=== PATIENT | male | born 1950 | race Caucasian/White ===

== ENCOUNTER 2017-02-13 09:35 | Emergency (ER) | payer MEDICARE, BC ==
[2017-02-13 10:17] VITALS: BP 157/89
[2017-02-13] MEDS ORDERED: Lidocaine 1% 10 ML MDV INJECT ONE (10:21)
[2017-02-13] MEDS ORDERED: Cephalexin 250 MG Cap ONE (11:17)
[2017-02-13] MEDS ORDERED: Diphtheria,Pertussis(Acell),Tetanus Vaccine 0.5 ML SDV IM ONE (11:21)
[2017-02-13] MEDS ORDERED: Cephalexin 250 MG Cap PO ONE (11:22)
--- NOTE | 2017-02-13 12:11 | EDM.PDOC ---
ED HPI Trauma - General Chief Complaint: Upper Extremity Injury/Pain Stated Complaint: FISHHOOK IN LEFT HAND-THUMB AREA Time Seen by Provider: 02/13/17 09:45 Source: Reports: Patient, Family () History Limitations: Reports: No limitations - History of Present Illness INITIAL COMMENTS - FREE TEXT/NARRATIVE: Patient was fishing earlier this morning and had a large barbed fishhook embedded into his left thumb he comes in to have this removed today. Other than the discomfort from the needle he has no other complaints. He denies numbness in his finger. He is able to bend the finger without difficulty. Symptom Onset Date: 02/13/17 Occurred When: this morning Occurred Where: other Severity: mild Pain/Injury Location: Reports: upper extremity, left (left thumb palmar surface) Associated Symptoms: Reports: no other symptoms Allergies/ADRs: Allergies No Known Drug Allergies Allergy (Verified 02/13/17 10:18) Cannot Remember Home Medications: Ambulatory Orders Aspirin [Halfprin] 81 mg PO BRK 10/07/15 [Confirmed 02/13/17] Metoprolol Succinate 25 mg PO DAILY 10/07/15 [Confirmed 02/13/17] Omeprazole Magnesium [Prilosec Otc] 20 mg PO DAILY 10/07/15 [Confirmed 02/13/17] Valsartan/Hydrochlorothiazide [Valsartan-Hctz 160-12.5 mg Tab] 1 each PO DAILY 10/07/15 [Confirmed 02/13/17] atorvaSTATin Calcium [Atorvastatin Calcium] 40 mg PO DAILY 10/07/15 [Confirmed 02/13/17] Finasteride [Finasteride] 5 mg PO DAILY 02/13/17 [Confirmed 02/13/17] Past Medical History HEENT History: Reports: Hard of hearing, Impaired vision Cardiovascular History: Reports: High cholesterol, Hypertension, SOB on exertion Respiratory History: Reports: SOB Gastrointestinal History: Reports: Cholelithiasis, GERD, GI bleed Genitourinary History: Reports: Pyelonephritis, Renal calculus, UTI, recurrent Musculoskeletal History: Reports: Arthritis Neurological History: Reports: Concussion, Headaches, chronic, Migraines, Vertigo Endocrine/Metabolic History: Reports: Other (see below) Other Endocrine/Metabolic History: Pt states boarder ling diabetic. Dermatologic History: Reports: Eczema, Other (see below) Other Dermatologic History: Hx of cellulitis to ear - Infectious Disease History Infectious Disease History: Reports: C-difficile, Measles - Past Surgical History HEENT Surgical History: Reports: None Cardiovascular Surgical History: Reports: None GI Surgical History: Reports: Appendectomy, Cholecystectomy, Colonoscopy, EGD Male Surgical History: Reports: Renal Calculus Endocrine Surgical History: Reports: None Neurological Surgical History: Reports: None Musculoskeletal Surgical History: Reports: Arthroscopic knee Dermatological Surgical History: Reports: None Social & Family History - Family History Family Medical History: Noncontributory - Tobacco Use Smoking Status *Q: Never Smoker Second Hand Smoke Exposure: Yes - Caffeine Use Caffeine Use: Reports: Soda - Recreational Drug Use Recreational Drug Use: No Review of Systems - Review of Systems Review Of Systems: ROS reveals no pertinent complaints other than HPI. Trauma Exam - Physical Exam Exam: See Below Exam Limited By: No limitations General Appearance: Reports: alert, WD/WN, obese Head: Reports: atraumatic, normocephalic Throat/Mouth: Reports: Normal voice, No airway compromise Respiratory Exam: Reports: no respiratory distress Extremities: Reports: other (there is a large barbed hook embedded into the left thumb palmar surface proximal to the IP joint. Patient has intact sensation to light touch distally. No numbness or tingling complaints. Patient is able to flex the finger without limitation or difficulty.) Neurologic: Reports: alert, normal mood/affect, oriented x 3 Skin: Reports: Normal color, Warm/dry ED TRAUMA EXTREMITY PROCEDURES - Foreign Body Removal Consent obtained: patient Anesthesia Type: Local (digital block left thumb) Findings:: Left fishhook barbed, was removed after a digital block of 5 cc of 1% Xylocaine to anesthetize the thumb. The hook was removed by using a needle-nose roll off driver and bringing it through the skin. A barbed hook was then cut and her remaining hook was removed to its initial entrance. Thumb was then placed in a Betadine saline solution and cleaned. Started on Keflex. Entire procedure well he had no complaints Complications:: No Course - Vital Signs Last Recorded V/S: Last Vital Signs Temp 98.6 F 02/13/17 10:14 Pulse 66 02/13/17 10:14 Resp 18 02/13/17 10:14 BP 157/89 H 02/13/17 10:14 Pulse Ox 94 L 02/13/17 10:14 - Orders/Labs/Meds Orders: Active Orders 24 hr Category Date Time Status Vaccines to be Administered [RC] PER UNIT ROUTINE Care 02/13/17 11:22 Active Meds: Medications Discontinued Medications Generic Name Dose Route Start Last Admin Trade Name Thony PRN Reason Stop Dose Admin Cephalexin Confirm 02/13/17 11:17 Keflex Administered 02/13/17 11:18 Dose 2,000 mg .ROUTE .STK-MED ONE Cephalexin 2,000 mg 02/13/17 11:22 02/13/17 11:51 Keflex PO 02/13/17 11:23 2,000 mg ONETIME ONE Administration Diphtheria/Tetanus/Acell Pertussis 0.5 ml 02/13/17 11:21 02/13/17 11:51 Adacel IM 02/13/17 11:22 0.5 ml .ONCE ONE Administration Lidocaine HCl 10 ml 02/13/17 10:21 02/13/17 10:52 Xylocaine 1% INJECT 02/13/17 10:22 Not Given ONETIME ONE Lidocaine HCl 5 ml 02/13/17 10:50 02/13/17 10:51 Xylocaine-Mpf 1% INJECT 02/13/17 10:51 5 ml ONETIME ONE Administration Departure - Departure Time of Disposition: 12:11 Disposition: Home, Self-Care 01 Condition: good Clinical Impression: [place] injury to finger Qualifiers: Encounter type: initial encounter Laterality: left Qualified Code(s): S69.92XA - Unspecified injury of left wrist, hand and finger(s), initial encounter Instructions: Puncture Wound, [id number], Infectious Finger Tenosynovitis Referrals: Dixie Mathur MD [Primary Care Provider] - Forms: ED Department Discharge Additional Instructions: 1. Keflex 500 mg 4 times a day for 5 days 2. For signs of infection to the left thumb, redness, swelling, increasing pain , increased pain with finger flexion, redness and swelling extending up the thumb into the hand and forearm. 3. Followup with your primary care if any of these symptoms should occur. 4. Keep the area clean and dry. - My Orders Last 24 Hours: My Active Orders 02/13/17 11:22 Vaccines to be Administered [RC] PER UNIT ROUTINE - Assessment/Plan Last 24 Hours: My Active Orders 02/13/17 11:22 Vaccines to be Administered [RC] PER UNIT ROUTINE Assessment:: Embedded fishhook left thumb Plan: 1. Keflex 500 mg 4 times a day for 5 days. 2. Patient will watch for signs of infection of the left thumb which includes redness swelling increased pain with flexion and redness swelling moving up the the thumb and into the hand and forearm. 3. Followup with his primary care if there is any concerns of infection.
== END 2017-02-13 11:50 | disposition home or self-care (01) ==
LOC: KA.ED 09:35
DX: S60.352A Superficial foreign body of left thumb, initial encounter (principal); E78.00 Pure hypercholesterolemia, unspecified; I10 Essential (primary) hypertension; K21.9 Gastro-esophageal reflux disease without esophagitis; Z90.49 Acquired absence of other specified parts of digestive tract; Z79.899 Other long term (current) drug therapy; Z23 Encounter for immunization
CPT/HCPCS: 64450; 90471; 90715; 99283; A9270

== ENCOUNTER 2022-09-28 11:35 | Day surgery (SDC) | payer MEDICARE, BC ==
[2022-09-28] MEDS ORDERED: Sodium Chloride 0.9% 10 ML Syringe FLUSH PRN (12:00)
[2022-09-28] MEDS ORDERED: Sodium Chloride 0.9% 1,000 ML IV SCH (12:00)
[2022-09-28] MEDS ORDERED: Propofol 200 MG/20 ML SDV ONE (13:05)
[2022-09-28] MEDS ORDERED: Midazolam 1 MG/ML 2 ML SDV ONE (13:05)
[2022-09-28 17:46] VITALS: BP 117/65; PULSE 68
== END 2022-09-28 15:03 | disposition home or self-care (01) ==
LOC: KA.SDS 11:35
PROVIDERS: ATTEND Surgery
DX: Z12.11 Encounter for screening for malignant neoplasm of colon (principal); D12.5 Benign neoplasm of sigmoid colon; I10 Essential (primary) hypertension; E11.9 Type 2 diabetes mellitus without complications; D64.9 Anemia, unspecified; F32.A Depression, unspecified; K21.9 Gastro-esophageal reflux disease without esophagitis; E78.5 Hyperlipidemia, unspecified; E55.9 Vitamin D deficiency, unspecified; R73.01 Impaired fasting glucose; E53.8 Deficiency of other specified B group vitamins; Z79.899 Other long term (current) drug therapy; Z79.82 Long term (current) use of aspirin; Z79.84 Long term (current) use of oral hypoglycemic drugs; Z88.5 Allergy status to narcotic agent; Z98.890 Other specified postprocedural states; Z90.49 Acquired absence of other specified parts of digestive tract; Z68.41 Body mass index [BMI] 40.0-44.9, adult
CPT/HCPCS: 00812; 82947; J2250; J2704; J7030

== ENCOUNTER 2024-08-06 10:45 | Emergency (ER) | payer MEDICARE ==
[2024-08-06 11:15] LABS: BASOPHILS ABSOLUTE AUTO 0.03 10^3/uL (0.00-0.10); BASOPHILS PERCENT AUTO 0.3 % (0.0-1.0); EOSINOPHILS ABSOLUTE AUTO 0.17 10^3/uL (0.10-0.30); EOSINOPHILS PERCENT AUTO 1.5 % (1.0-3.0); HEMATOCRIT 37.2 % (40.0-52.0); HEMOGLOBIN 11.9 g/dL (13.0-17.0); IMMATURE GRAN ABSOLUTE AUTO 0.02 10^3/uL (0.00-0.50); IMMATURE GRAN PERCENT AUTO 0.2 % (0.0-5.0); LYMPHOCYTES ABSOLUTE AUTO 1.19 10^3/uL (1.00-4.00); LYMPHOCYTES PERCENT AUTO 10.7 % (20.0-40.0); MEAN CORPUSCULAR HEMOGLOBIN 29.1 pg (27.0-31.0); MEAN PLATELET VOLUME 10.5 fL (7.4-10.4); MONOCYTES ABSOLUTE AUTO 1.26 10^3/uL (0.10-0.80); MONOCYTES PERCENT AUTO 11.3 % (2.0-8.0); NEUTROPHILS ABSOLUTE AUTO 8.44 10^3/uL (2.50-7.00); PLATELET COUNT,PLT 202 10^3/uL (150-400); RED BLOOD CELL COUNT 4.09 10^6/uL (4.50-6.00); RED CELL DISTRIBUTION WIDTH 14.6 % (11.5-14.5); WHITE BLOOD CELL COUNT,WBC 11.11 10^3/uL (5.00-10.00)
[2024-08-06 11:35] LABS: ALANINE AMINOTRANSFERASE,ALT 33 U/L (14-63); ALBUMIN 3.45 g/dL (3.40-5.00); ALKALINE PHOSPHATASE 108 U/L (46-116); ANION GAP 8.4 mmol/L (5-15); ASPARTATE AMNIOTRANSFERASE,AST 42 U/L (15-37); BILIRUBIN TOTAL 1.5 mg/dL (0.2-1.0); BLOOD UREA NITROGEN,BUN 15 mg/dL (7-18); CALCIUM 8.2 mg/dL (8.7-10.3); CARBON DIOXIDE,CO2 29.2 mmol/L (21.0-32.0); CHLORIDE,CL 99 mmol/L (98-107); CREATININE 0.78 mg/dL (0.51-1.17); GLUCOSE RANDOM 106 mg/dL (70-140); POTASSIUM,K 3.6 mmol/L (3.5-5.1); PROTEIN TOTAL,TP 6.6 g/dL (6.4-8.2); SODIUM,NA 133 mmol/L (136-145)
[2024-08-06 11:36] LABS: ESTIMATED GFR 94 mL/min (>=60)
[2024-08-06 11:41] LABS: B-TYPE NATRIURETIC PEPTIDE,BNP 145 pg/mL (0-100)
[2024-08-06] MEDS: Sodium Chloride 0.9% 100 ML IV SCH (12:33)
[2024-08-06] MEDS: Iopamidol 755 Mg/ML 100 ML Bottle IV ONE (12:34)
[2024-08-06] MEDS: Metoprolol Succinate 25 MG Tab.ER PO ONE (13:31)
[2024-08-06 13:32] VITALS: BP 135/70; PULSE 96
[2024-08-06 17:03] LABS: APPEARANCE,URINE CLEAR (CLEAR); BILIRUBIN,URINE NEGATIVE (NEGATIVE); COLOR,URINE DARK YELLOW (YELLOW); GLUCOSE,URINE NEGATIVE (NEGATIVE); KETONES,URINE NEGATIVE (NEGATIVE); LEUKOCYTE ESTERASE,URINE TRACE (NEGATIVE); NITRITE,URINE POSITIVE (NEGATIVE); OCCULT BLOOD,URINE NEGATIVE (NEGATIVE); PH,URINE 5.5 (5.0-9.0); PROTEIN,URINE NEGATIVE (NEGATIVE)
[2024-08-06 17:11] LABS: BACTERIA,URINE FEW /HPF (NONE TO FEW); EPITHELIAL CELLS,URINE RARE /LPF; RBC,URINE 0-5 /HPF (0-5); WBC,URINE 0-5 /HPF (0-5)
== END 2024-08-06 18:09 ==
LOC: KA.ED 10:45
DX: J90 Pleural effusion, not elsewhere classified (principal); I31.39 Other pericardial effusion (noninflammatory); I10 Essential (primary) hypertension; E78.00 Pure hypercholesterolemia, unspecified; Z90.49 Acquired absence of other specified parts of digestive tract; Z79.899 Other long term (current) drug therapy; Z91.048 Other nonmedicinal substance allergy status; Z88.5 Allergy status to narcotic agent
CPT/HCPCS: 71045; 71275; 80053; 81001; 83880; 84484; 85025; 85379; 87086; 87088; 93005; 99285; A9270-GY; J3490; Q9967

== ENCOUNTER 2024-08-10 19:15 | Observation (INO) | payer MEDICARE ==
[2024-08-10] MEDS: Sodium Chloride 0.9% 1,000 ML ONE (19:38)
[2024-08-10 19:42] LABS: BASOPHILS ABSOLUTE AUTO 0.04 10^3/uL (0.00-0.10); BASOPHILS PERCENT AUTO 0.4 % (0.0-1.0); EOSINOPHILS ABSOLUTE AUTO 0.24 10^3/uL (0.10-0.30); EOSINOPHILS PERCENT AUTO 2.2 % (1.0-3.0); HEMATOCRIT 39.5 % (40.0-52.0); HEMOGLOBIN 12.9 g/dL (13.0-17.0); IMMATURE GRAN ABSOLUTE AUTO 0.04 10^3/uL (0.00-0.50); IMMATURE GRAN PERCENT AUTO 0.4 % (0.0-5.0); LYMPHOCYTES ABSOLUTE AUTO 1.62 10^3/uL (1.00-4.00); LYMPHOCYTES PERCENT AUTO 14.5 % (20.0-40.0); MEAN CORPUSCULAR HEMOGLOBIN 29.5 pg (27.0-31.0); MEAN CORPUSCULAR HGB CONC 32.7 g/dL (32.0-36.0); MEAN CORPUSCULAR VOLUME 90.4 fL (82.0-92.0); MEAN PLATELET VOLUME 10.5 fL (7.4-10.4); MONOCYTES ABSOLUTE AUTO 0.96 10^3/uL (0.10-0.80); MONOCYTES PERCENT AUTO 8.6 % (2.0-8.0); NEUTROPHILS ABSOLUTE AUTO 8.26 10^3/uL (2.50-7.00); NEUTROPHILS PERCENT AUTO 73.9 % (50.0-70.0); PLATELET COUNT,PLT 254 10^3/uL (150-400); RED BLOOD CELL COUNT 4.37 10^6/uL (4.50-6.00); RED CELL DISTRIBUTION WIDTH 14.7 % (11.5-14.5); WHITE BLOOD CELL COUNT,WBC 11.16 10^3/uL (5.00-10.00)
[2024-08-10 19:54] LABS: ALBUMIN 3.35 g/dL (3.40-5.00); ANION GAP 14.1 mmol/L (5-15); BILIRUBIN TOTAL 1.2 mg/dL (0.2-1.0); CARBON DIOXIDE,CO2 27.7 mmol/L (21.0-32.0); CREATININE 1.38 mg/dL (0.51-1.17); EST CRCL DRUG DOSING (CG) 53.88 mL/min; POTASSIUM,K 3.8 mmol/L (3.5-5.1); PROTEIN TOTAL,TP 6.5 g/dL (6.4-8.2)
[2024-08-11] MEDS ORDERED: Acetaminophen 325 MG Tab PO PRN (01:14)
[2024-08-11] MEDS ORDERED: Albuterol/Ipratropium 3.0-0.5 MG/3 ML Neb Soln INH PRN (01:16)
[2024-08-11] MEDS ORDERED: Albuterol 8 GM Inhaler INH PRN (01:16)
[2024-08-11 05:52] VITALS: PULSE 89
[2024-08-11 07:36] LABS: BASOPHILS ABSOLUTE AUTO 0.04 10^3/uL (0.00-0.10); BASOPHILS PERCENT AUTO 0.4 % (0.0-1.0); EOSINOPHILS ABSOLUTE AUTO 0.28 10^3/uL (0.10-0.30); EOSINOPHILS PERCENT AUTO 2.5 % (1.0-3.0); HEMATOCRIT 37.9 % (40.0-52.0); HEMOGLOBIN 12.1 g/dL (13.0-17.0); IMMATURE GRAN ABSOLUTE AUTO 0.02 10^3/uL (0.00-0.50); IMMATURE GRAN PERCENT AUTO 0.2 % (0.0-5.0); LYMPHOCYTES ABSOLUTE AUTO 1.64 10^3/uL (1.00-4.00); LYMPHOCYTES PERCENT AUTO 14.5 % (20.0-40.0); MEAN CORPUSCULAR HEMOGLOBIN 28.9 pg (27.0-31.0); MEAN CORPUSCULAR HGB CONC 31.9 g/dL (32.0-36.0); MEAN CORPUSCULAR VOLUME 90.5 fL (82.0-92.0); MEAN PLATELET VOLUME 10.1 fL (7.4-10.4); MONOCYTES ABSOLUTE AUTO 1.21 10^3/uL (0.10-0.80); MONOCYTES PERCENT AUTO 10.7 % (2.0-8.0); NEUTROPHILS ABSOLUTE AUTO 8.14 10^3/uL (2.50-7.00); NEUTROPHILS PERCENT AUTO 71.7 % (50.0-70.0); PLATELET COUNT,PLT 231 10^3/uL (150-400); RED BLOOD CELL COUNT 4.19 10^6/uL (4.50-6.00); RED CELL DISTRIBUTION WIDTH 14.8 % (11.5-14.5); WHITE BLOOD CELL COUNT,WBC 11.33 10^3/uL (5.00-10.00)
[2024-08-11 07:52] LABS: ANION GAP 11.4 mmol/L (5-15); CALCIUM 7.9 mg/dL (8.7-10.3); CARBON DIOXIDE,CO2 28.2 mmol/L (21.0-32.0); CREATININE 1.05 mg/dL (0.51-1.17); EST CRCL DRUG DOSING (CG) 70.81 mL/min; POTASSIUM,K 3.6 mmol/L (3.5-5.1)
[2024-08-11 08:22] LABS: BILIRUBIN,URINE NEGATIVE (NEGATIVE); COLOR,URINE YELLOW (YELLOW); GLUCOSE,URINE NEGATIVE (NEGATIVE); KETONES,URINE NEGATIVE (NEGATIVE); LEUKOCYTE ESTERASE,URINE MODERATE (NEGATIVE); NITRITE,URINE POSITIVE (NEGATIVE); OCCULT BLOOD,URINE MODERATE (NEGATIVE); PROTEIN,URINE 30 mg/dL (NEGATIVE)
[2024-08-11 08:24] LABS: APPEARANCE,URINE SLIGHTLY CLOUDY (CLEAR)
[2024-08-11 08:29] LABS: RBC,URINE 0-5 /HPF (0-5)
[2024-08-11 08:30] LABS: BACTERIA,URINE MODERATE /HPF (NONE TO FEW); EPITHELIAL CELLS,URINE RARE /LPF; WBC,URINE 30-40 /HPF (0-5)
[2024-08-11] MEDS: Cholecalciferol (Vitamin D3) 25 MCG Tab PO SCH (09:17)
[2024-08-11] MEDS: Formoterol/Mometasone 200-5 MCG 8.8 GM Inhaler IH SCH (09:17)
[2024-08-11] MEDS: Finasteride 5 MG Tab PO SCH (09:18)
[2024-08-11] MEDS: Ezetimibe 10 MG Tab PO SCH (09:18)
[2024-08-11] MEDS: Citalopram 20 MG Tab PO SCH (09:18)
[2024-08-11] MEDS: Multivitamins with Minerals/Iron/Folic Acid/Lycopene Tab PO SCH (09:18)
[2024-08-11] MEDS: Tamsulosin 0.4 MG Cap.ER PO SCH (09:18)
[2024-08-11] MEDS: Apixaban 5 MG Tab PO SCH (09:18)
[2024-08-11] MEDS: Furosemide 20 MG Tab PO SCH (09:18)
[2024-08-11] MEDS: atorvaSTATin 40 MG Tab PO SCH (09:18)
[2024-08-11] MEDS: Clopidogrel 75 MG Tab PO SCH (09:18)
[2024-08-11] MEDS: cefTRIAXone 1 GM Vial IVPUSH ONE (11:50)
[2024-08-11] MEDS: Metoprolol Succinate 25 MG Tab.ER PO SCH (13:07)
[2024-08-11 13:24] VITALS: BP 127/76
[2024-08-11] MEDS ORDERED: Pantoprazole 40 MG Tab.CR PO SCH (21:00)
== END 2024-08-11 12:15 | disposition home or self-care (01) ==
LOC: KA.ED 19:15 → KA.MS 22:00
PROVIDERS: ADMIT Physician Assistant Surgical; ATTEND Internal Medicine
DX: R55 Syncope and collapse (principal); E86.0 Dehydration; N17.9 Acute kidney failure, unspecified; I10 Essential (primary) hypertension; K21.9 Gastro-esophageal reflux disease without esophagitis; I48.91 Unspecified atrial fibrillation; E78.00 Pure hypercholesterolemia, unspecified; Z79.899 Other long term (current) drug therapy; Z88.5 Allergy status to narcotic agent
CPT/HCPCS: 36415; 71045; 80048; 80053; 81001; 83880; 84484; 85025; 99285; A9270; J0696; Q3014; 96374; 99223-GT; 99284; G0378

== ENCOUNTER 2024-11-19 14:17 | Emergency (ER) | payer MEDICARE ==
[2024-11-19] MEDS: Sodium Chloride 0.9% 1,000 ML IV SCH ×2 (14:54→17:04)
[2024-11-19] MEDS: cefTRIAXone 1 GM Vial IVPUSH ONE (15:49)
[2024-11-19] MEDS: cefTRIAXone 2 GM Vial IVPUSH ONE (16:35)
[2024-11-19] MEDS: HYDROmorphone 1 MG/ML Syringe IVPUSH ONE (16:59)
[2024-11-19 18:47] VITALS: BP 116/69; PULSE 98
== END 2024-11-19 18:45 ==
LOC: KA.ED 14:17
DX: A41.9 Sepsis, unspecified organism (principal); R65.20 Severe sepsis without septic shock; N30.01 Acute cystitis with hematuria; N13.2 Hydronephrosis with renal and ureteral calculous obstruction; I10 Essential (primary) hypertension; K21.9 Gastro-esophageal reflux disease without esophagitis; E78.00 Pure hypercholesterolemia, unspecified; Z88.8 Allergy status to other drugs, medicaments and biological substances; Z79.84 Long term (current) use of oral hypoglycemic drugs; Z79.899 Other long term (current) drug therapy; Z90.49 Acquired absence of other specified parts of digestive tract
CPT/HCPCS: 36415; 74176; 83605; 87040; 87186; 96361; 96374; 96375; 99284; 99285-25; J0696; J1171; J7030

== ENCOUNTER 2025-09-10 13:48 | Emergency (ER) | payer MEDICARE ==
[2025-09-10 13:58] VITALS: BP 125/71; PULSE 101
[2025-09-10] MEDS: Sodium Chloride 0.9% 10 ML Syringe FLUSH PRN (14:23)
[2025-09-10 14:28] LABS: BASOPHILS ABSOLUTE AUTO 0.07 10^3/uL (0.00-0.10); BASOPHILS PERCENT AUTO 0.7 % (0.0-1.0); EOSINOPHILS ABSOLUTE AUTO 0.43 10^3/uL (0.10-0.30); EOSINOPHILS PERCENT AUTO 4.6 % (1.0-3.0); IMMATURE GRAN ABSOLUTE AUTO 0.03 10^3/uL (0.00-0.04); IMMATURE GRAN PERCENT AUTO 0.3 % (0.0-0.4); LYMPHOCYTES ABSOLUTE AUTO 1.39 10^3/uL (1.00-4.00); LYMPHOCYTES PERCENT AUTO 14.8 % (20.0-40.0); MEAN PLATELET VOLUME 10.6 fL (7.4-10.4); MONOCYTES ABSOLUTE AUTO 0.80 10^3/uL (0.10-0.80); MONOCYTES PERCENT AUTO 8.5 % (2.0-8.0); NEUTROPHILS ABSOLUTE AUTO 6.68 10^3/uL (2.50-7.00); NEUTROPHILS PERCENT AUTO 71.1 % (50.0-70.0); PLATELET COUNT,PLT 381 10^3/uL (150-400); RED BLOOD CELL COUNT 2.96 10^6/uL (4.50-6.00); RED CELL DISTRIBUTION WIDTH 18.8 % (11.5-14.5); WHITE BLOOD CELL COUNT,WBC 9.40 10^3/uL (5.00-10.00)
[2025-09-10 14:43] LABS: ALANINE AMINOTRANSFERASE,ALT 12.0 U/L (14-63); ASPARTATE AMNIOTRANSFERASE,AST 35.0 U/L (15-37); BILIRUBIN TOTAL 1.1 mg/dL (0.2-1.0); BLOOD UREA NITROGEN,BUN 37.0 mg/dL (7-18); CARBON DIOXIDE,CO2 17.5 mmol/L (21.0-32.0); CHLORIDE,CL 104.0 mmol/L (98-107); CREATININE 2.91 mg/dL (0.51-1.17); EST CRCL DRUG DOSING (CG) 25.17 mL/min; GLUCOSE RANDOM 99.0 mg/dL (70-140); PHOSPHORUS 3.5 mg/dL (2.6-4.7); POTASSIUM,K 4.3 mmol/L (3.5-5.1); PROTEIN TOTAL,TP 7.1 g/dL (6.4-8.2); SODIUM,NA 134.0 mmol/L (136-145)
[2025-09-10 14:44] LABS: ESTIMATED GFR 22.0 mL/min (>=60)
[2025-09-10 16:00] LABS: CORONAVIRUS COVID-19 NAA NEGATIVE (NEGATIVE); INFLUENZA A NAA NEGATIVE (NEGATIVE); INFLUENZA B NAA NEGATIVE (NEGATIVE)
[2025-09-10 16:07] LABS: APPEARANCE,URINE CLOUDY (CLEAR); GLUCOSE,URINE NEGATIVE (NEGATIVE); OCCULT BLOOD,URINE LARGE (NEGATIVE)
[2025-09-10 16:08] LABS: EPITHELIAL CELLS,URINE RARE /LPF
[2025-09-10 16:09] LABS: YEAST,URINE FEW /HPF (NEGATIVE)
== END 2025-09-10 16:54 | disposition home or self-care (01) ==
LOC: KA.ED 13:48
DX: I13.0 Hypertensive heart and chronic kidney disease with heart failure and stage 1 through stage 4 chronic kidney disease, or unspecified chronic kidney disease (principal); N18.4 Chronic kidney disease, stage 4 (severe); N39.0 Urinary tract infection, site not specified; R63.0 Anorexia; R43.2 Parageusia; D64.9 Anemia, unspecified; I50.9 Heart failure, unspecified; K21.9 Gastro-esophageal reflux disease without esophagitis; Z88.8 Allergy status to other drugs, medicaments and biological substances; Z91.09 Other allergy status, other than to drugs and biological substances; Z79.84 Long term (current) use of oral hypoglycemic drugs; Z79.899 Other long term (current) drug therapy; Z90.49 Acquired absence of other specified parts of digestive tract
CPT/HCPCS: 36415; 71045; 80053; 81001; 83735; 84100; 85025; 87086; 87088; 87636; 96361; 96374; 99284-25; J0696; J7030